=== PATIENT | female | born 1955 | race Caucasian/White ===

== ENCOUNTER 2024-08-21 15:25 | Inpatient (IN) | payer MEDICARE, BC ==
[~2024-08-21] VITALS: Ht 172.7 cm; Wt 81.6 kg
[2024-08-21 15:39] VITALS: O2SAT 98
[2024-08-21] MEDS ORDERED: AZITHROMYCIN 500MG/250ML 250 ML IV ONE (15:45)
[2024-08-21] MEDS: SODIUM CHLORIDE 0.9% (SEPSIS BOLUS) IV ONE (16:22)
[2024-08-21] MEDS: ONDANSETRON HCL 4MG/2ML INJ IV STA (16:23)
[2024-08-21] MEDS: CEFTRIAXONE 1GM/50ML 50 ML IV ONE (16:23)
[2024-08-21 16:55] LABS: HEMATOCRIT. 43.5 % (36.0-48.0); HEMOGLOBIN. 14.2 g/dL (12.0-16.0); MEAN CORPUSCULAR HEMOGLOBIN 29.5 pg (28.0-32.0); MEAN CORPUSCULAR HGB CONC 32.7 g/dL (31.0-37.0); MEAN CORPUSCULAR VOLUME 90.1 fL (81.0-99.0); MEAN PLATELET VOLUME 8.1 fl (7.4-10.4); PLATELET 352 x1000/uL (130-400); RED BLOOD CELL COUNT 4.83 mill/uL (4.2-5.4); RED CELL DISTRIBUTION WIDTH 14.5 % (11.6-14.6); WHITE BLOOD COUNT 7.9 x1000/uL (4.5-11.0)
[2024-08-21 16:56] LABS: DIFFERENTIAL COMMENT 1
[2024-08-21 17:01] LABS: CHLORIDE 107 mEq/L (98-107); POTASSIUM 3.2 mEq/L (3.5-5.1); SODIUM 137 mEq/L (136-145)
[2024-08-21 17:02] LABS: CARBON DIOXIDE 21 mEq/L (21-32)
[2024-08-21 17:03] LABS: CALCIUM 8.7 mg/dL (8.7-10.4)
[2024-08-21 17:06] LABS: PARTIAL THROMBOPLASTIN TIME 27.2 sec (23.4-31.0); PROTHROMBIN TIME 10.9 sec (9.6-11.0)
[2024-08-21 17:08] LABS: CREATININE 1.2 mg/dL (0.6-1.0); GLUCOSE 128 mg/dL (70-105); TROPONIN I HIGH SENSITIVITY 5 ng/L (3.0-34); UREA NITROGEN BLOOD 10 mg/dL (9-23)
[2024-08-21 17:09] LABS: ALANINE AMINOTRANSFERASE 9 IU/L (10-49); ASPARTATE AMINOTRANSFERASE 15 IU/L (<34)
[2024-08-21 17:10] LABS: ALBUMIN 4.1 g/dL (3.2-4.8); BILIRUBIN DIRECT 0.2 mg/dL (<=3.0); BILIRUBIN TOTAL 0.6 mg/dL (0.1-1.0); PROTEIN TOTAL 6.9 g/dL (6.0-8.3)
[2024-08-21 17:18] LABS: PLATELET ESTIMATE NORMAL
[2024-08-21 17:41] LABS: TROPONIN I HIGH SENSITIVITY 5 ng/L (3.0-34)
[2024-08-21 17:50] LABS: CLARITY URINE CLEAR (CLEAR); COLOR URINE YELLOW (YELLOW); GLUCOSE URINE NEGATIVE (NEGATIVE); KETONES URINE 1+ (NEGATIVE); LEUKOCYTE ESTERASE URINE 1+ (NEGATIVE); NITRITE URINE NEGATIVE (NEGATIVE); OCCULT BLOOD URINE TRACE (NEGATIVE); PH URINE 6.5 (4.5-8.0); PROTEIN URINE NEGATIVE (NEGATIVE); SPECIFIC GRAVITY URINE 1.004 (1.005-1.030); UROBILINOGEN URINE 0.2 E.U./dL (0.2-1.0)
[2024-08-21 18:04] LABS: BACTERIA URINE 2+; SQUAMOUS EPITHELIAL CELL URINE 1+ /lpf (RARE/1+)
[2024-08-21] MEDS: OSELTAMIVIR 75MG CAPSULE PO ONE (18:11)
[2024-08-21] MEDS: AZITHROMYCIN 500MG/250ML 250 ML IV NR (18:11)
[2024-08-21] MEDS: POTASSIUM CHLORIDE 20MEQ TABLET SR PO NR (18:11)
[2024-08-21] MEDS ORDERED: ONDANSETRON HCL 4MG/2ML INJ IV PRN (18:15)
[2024-08-21] MEDS ORDERED: ACETAMINOPHEN 325MG TABLET PO PRN ×2 (18:15)
[2024-08-21] MEDS ORDERED: ENOXAPARIN 80MG/0.8ML SYR SUBCUT ONE (18:15)
[2024-08-21] MEDS ORDERED: GUAIFENESIN 200MG/10ML SUGAR FREE UDC PO PRN (18:15)
[2024-08-21] MEDS ORDERED: IPRATROPIUM/ALBUTEROL 0.5-3(2.5)MG/3ML NEB HHN PRN (18:15)
[2024-08-21] MEDS ORDERED: DOCUSATE SODIUM 100MG CAPSULE PO PRN (18:15)
[2024-08-21] MEDS ORDERED: CLONIDINE 0.1MG TABLET PO PRN (18:15)
[2024-08-21] MEDS: DEXT 5%/0.45% NACL 1000ML 1,000 ML IV ONE (20:06)
[2024-08-21] MEDS: ENOXAPARIN 40MG/0.4ML SYR SUBCUT SCH (21:00)
[2024-08-21] MEDS: PANTOPRAZOLE 40MG DR TABLET PO NR (21:39)
[2024-08-21] MEDS: ENOXAPARIN 80MG/0.8ML SYR SUBCUT NR (21:41)
[2024-08-21 22:00] VITALS: BP 101/55; PULSE 72; RESP 16; TEMP 36.9474; O2SAT 98
[2024-08-21] MEDS ORDERED: IOHEXOL-350 100 ML BOTTLE ONE (23:19)
[2024-08-22] VITALS (7 sets, daily range): BP systolic 101–132; BP diastolic 55–75; PULSE 60–72; RESP 15–20; TEMP 36.3918–37.00296; O2SAT 95–99
[2024-08-22 07:01] LABS: BASOPHILS % 0.4 % (0.0-2.0); EOSINOPHILS % 0.1 % (0.0-5.0); HEMOGLOBIN. 12.1 g/dL (12.0-16.0); LYMPHOCYTES % 14.4 % (20.0-50.0); MEAN CORPUSCULAR HEMOGLOBIN 29.2 pg (28.0-32.0); MEAN CORPUSCULAR HGB CONC 32.6 g/dL (31.0-37.0); MEAN CORPUSCULAR VOLUME 89.4 fL (81.0-99.0); MEAN PLATELET VOLUME 8.2 fl (7.4-10.4); MONOCYTES % 9.1 % (2.0-8.0); PLATELET 307 x1000/uL (130-400); RED BLOOD CELL COUNT 4.14 mill/uL (4.2-5.4); RED CELL DISTRIBUTION WIDTH 14.8 % (11.6-14.6); WHITE BLOOD COUNT 5.3 x1000/uL (4.5-11.0)
[2024-08-22] MEDS: PANTOPRAZOLE 40MG DR TABLET PO SCH (07:04)
[2024-08-22 07:08] LABS: CARBON DIOXIDE 22 mEq/L (21-32); CHLORIDE 113 mEq/L (98-107); POTASSIUM 3.4 mEq/L (3.5-5.1); SODIUM 141 mEq/L (136-145)
[2024-08-22 07:09] LABS: CALCIUM 7.9 mg/dL (8.7-10.4)
[2024-08-22 07:12] LABS: THYROID STIMULATING HORMONE 0.73 uIU/mL (0.55-4.78)
[2024-08-22 07:14] LABS: GLUCOSE 72 mg/dL (70-105)
[2024-08-22 07:15] LABS: LDL CHOLESTEROL 61 mg/dL (5-100); TRIGLYCERIDE 96 mg/dL (0-150); UREA NITROGEN BLOOD 6 mg/dL (9-23)
[2024-08-22 07:16] LABS: CHOLESTEROL 125 mg/dL (<200); HDL CHOLESTEROL 42 mg/dL (>65)
[2024-08-22 07:17] LABS: PHOSPHORUS 2.6 mg/dL (2.5-4.9)
[2024-08-22] MEDS: MAGNESIUM 2 G PREMIX 50 ML IV NR (10:35)
[2024-08-22] MEDS: ENOXAPARIN 80MG/0.8ML SYR SUBCUT SCH (10:35)
[2024-08-22] MEDS ORDERED: IOHEXOL-350 100 ML BOTTLE ONE (10:48)
[2024-08-22] MEDS: NITROGLYCERIN SPRAY/4.9GM CAN TL ONE (11:00)
[2024-08-22] MEDS: CEFTRIAXONE 1GM/50ML 50 ML IV SCH (15:43)
[2024-08-22] MEDS: POTASSIUM CHLORIDE 20MEQ TABLET SR PO NR (17:26)
[2024-08-22] MEDS: SODIUM CHLORIDE 0.9% 1,000 ML IV SCH (17:27)
[2024-08-22 17:46] LABS: CREATINE KINASE MB FRACTION 3.4 ng/mL (0.5-3.6)
[2024-08-23 01:23] LABS: CREATINE KINASE MB FRACTION 2.3 ng/mL (0.5-3.6)
[2024-08-23 07:25] LABS: BASOPHILS % 0.8 % (0.0-2.0); CARBON DIOXIDE 22 mEq/L (21-32); CHLORIDE 111 mEq/L (98-107); HEMATOCRIT. 34.2 % (36.0-48.0); HEMOGLOBIN. 11.5 g/dL (12.0-16.0); LYMPHOCYTES % 25.2 % (20.0-50.0); MEAN CORPUSCULAR HEMOGLOBIN 29.9 pg (28.0-32.0); MEAN CORPUSCULAR HGB CONC 33.5 g/dL (31.0-37.0); MEAN CORPUSCULAR VOLUME 89.2 fL (81.0-99.0); MEAN PLATELET VOLUME 7.7 fl (7.4-10.4); MONOCYTES % 13.6 % (2.0-8.0); NEUTROPHILS % 59.4 % (40.0-76.0); PLATELET 266 x1000/uL (130-400); POTASSIUM 3.6 mEq/L (3.5-5.1); RED BLOOD CELL COUNT 3.83 mill/uL (4.2-5.4); SODIUM 140 mEq/L (136-145); WHITE BLOOD COUNT 4.4 x1000/uL (4.5-11.0)
[2024-08-23 07:26] LABS: CALCIUM 8.1 mg/dL (8.7-10.4)
[2024-08-23 07:30] LABS: CREATINE KINASE MB FRACTION 2.5 ng/mL (0.5-3.6)
[2024-08-23 07:31] LABS: CREATININE 0.8 mg/dL (0.6-1.0); GLUCOSE 83 mg/dL (70-105)
[2024-08-23 07:40] LABS: UREA NITROGEN BLOOD < 5 mg/dL (9-23)
[2024-08-23 08:00] VITALS: BP 146/85; PULSE 61; RESP 16; TEMP 36.72516; O2SAT 97
[2024-08-23 12:00] VITALS: BP 129/74; PULSE 60; RESP 18; TEMP 36.6696; O2SAT 98
[2024-08-23] MEDS ORDERED: APIX5TAB PO (12:24)
[2024-08-23 16:00] VITALS: BP 130/60; PULSE 66; RESP 20; TEMP 36.83628; O2SAT 97
[2024-08-23 17:11] VITALS: BP 128/64; PULSE 60; TEMP 98.7
== END 2024-08-23 17:30 | disposition home or self-care (01) | DRG 392 ==
LOC: ER 15:25 → EDBEDREQ 16:01 → 5WST 17:34 → EDBEDREQ 17:41
PROVIDERS: ADMIT Internal Medicine; ATTEND Internal Medicine
DX: A08.4 Viral intestinal infection, unspecified (principal); N39.0 Urinary tract infection, site not specified; I48.92 Unspecified atrial flutter; I48.0 Paroxysmal atrial fibrillation; I95.9 Hypotension, unspecified; E87.6 Hypokalemia; J45.909 Unspecified asthma, uncomplicated; Z20.822 Contact with and (suspected) exposure to COVID-19; K58.9 Irritable bowel syndrome, unspecified; I25.10 Atherosclerotic heart disease of native coronary artery without angina pectoris; Z79.01 Long term (current) use of anticoagulants; Z90.49 Acquired absence of other specified parts of digestive tract; Z90.710 Acquired absence of both cervix and uterus; Z79.899 Other long term (current) drug therapy
CPT/HCPCS: 36415; 71045; 71275; 75571; 80048; 80061; 80076; 81003; 82550; 82553; 83036; 83605; 83735; 83880; 84100; 84145; 84439; 84443; 84484; 85025; 85379; 86850; 86900; 87426; 87804; 93005; 93306; 93970; 99291; J0456; J0696; J1650; J2405; J3475; J7030; Q9967